=== PATIENT | female | born 1965 | race American Indian/Alaskan Native ===

== ENCOUNTER 2018-12-11 21:50 | Emergency (ER) | payer OTHER ==
--- NOTE | 2018-12-11 21:57 | Emergency Department Report ---
Blank Doc - Documentation Documentation: This is a 53-year-old female that presents with sickle cell flareup. This initial assessment/diagnostic orders/clinical plan/treatment(s) is/are subject to change based on patient's health status, clinical progression and re- assessment by fellow clinical providers in the ED. Further treatment and workup at subsequent clinical providers discretion. Patient/guardians urged not to elope from the ED as their condition may be serious if not clinically assessed and managed. Initial orders include: 1- Patient sent to MAIN ED for further evaluation and treatment 2- labs 3- UA
[2018-12-11 23:29] LABS: Basophils % (Auto) 0.3 % (0.0-1.8); Eosinophils % (Auto) 0.1 % (0.0-4.3); Hematocrit 37.4 % (30.3-42.9); Hemoglobin 12.5 gm/dl (10.1-14.3); Lymphocytes # (Auto) 1.1 K/mm3 (1.2-5.4); Mean Corpuscular HGB Conc 33 % (30-34); Mean Corpuscular Volume 73 fl (79-97); Monocytes # (Auto) 0.3 K/mm3 (0.0-0.8); Monocytes % (Auto) 3.2 % (0.0-7.3); Platelet Count 166 K/mm3 (140-440); Red Blood Count 5.11 M/mm3 (3.65-5.03); Red Cell Distribution Width 17.6 % (13.2-15.2)
[2018-12-11 23:49] LABS: BUN/Creatinine Ratio 13; Blood Urea Nitrogen 10 mg/dL (7-17); Calcium 9.5 mg/dL (8.4-10.2); Hemolysis Index 17
--- NOTE | 2018-12-12 00:46 | Emergency Department Report ---
ED General Adult HPI - General Chief complaint: Sickle Cell Crisis Stated complaint: LEFT LEG PAIN Time Seen by Provider: 12/11/18 21:56 Source: patient Mode of arrival: Ambulatory Limitations: No Limitations - History of Present Illness Initial comments: This is a 53-year-old female. This patient is not known to this provider previously. 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 She also reports a history of DVT and lower extremity, reported stent and left lower extremity, and reports being on permanent anticoagulation, rafael She is visiting from [place]. She presents to the ER with complaint of nontraumatic left medial thigh pain, stating "my sickle cell disease is bothering me." Patient indicates that her sickle cell disease flares up every couple months, and she cannot pinpoint exactly triggering factors at this time. She denies fever, sore throat, neck pain, chest pain, abdominal pain, urinary symptoms or shortness of breath. She denies sick contacts. -: Gradual Location: left, lower extremity Radiation: non-radiation Quality: aching Consistency: intermittent Improves with: rest Worsens with: movement Associated Symptoms: denies other symptoms - Related Data Previous Rx's Medication Instructions Recorded Last Taken Type Acetaminophen [Non-Aspirin Extra 500 mg PO Q6HR PRN #30 tablet 12/12/18 Unknown Rx Strength] Allergies Allergy/AdvReac Type Severity Reaction Status Date / Time No Known Allergies Allergy Unverified 08/02/15 06:18 ED Review of Systems ROS: Stated complaint: LEFT LEG PAIN Other details as noted in HPI Comment: All other systems reviewed and negative Musculoskeletal: myalgia ED Past Medical Hx - Past Medical History Previous Medical History?: Yes Hx Deep Vein Thrombosis: Yes 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" - Surgical History Past Surgical History?: Yes Additional Surgical History: tubal ligation, stent to L leg, UFE, - Social History Smoking Status: Never Smoker Substance Use Type: None - Medications Home Medications: Home Medications Medication Instructions Recorded Confirmed Last Taken Type Acetaminophen [Non-Aspirin Extra 500 mg PO Q6HR PRN #30 tablet 12/12/18 Unknown Rx Strength] ED Physical Exam - General Limitations: No Limitations, Other (chaperoned by ER hand picker Ambrosio Cantrell) General appearance: alert, in no apparent distress - Head Head exam: Present: atraumatic, normocephalic - Eye Eye exam: Present: normal appearance, EOMI. Absent: nystagmus - ENT ENT exam: Present: normal exam, normal orophraynx, mucous membranes moist, normal external ear exam - Neck Neck exam: Present: normal inspection, full ROM. Absent: tenderness, meningismus - Respiratory Respiratory exam: Present: normal lung sounds bilaterally. Absent: respiratory distress - Cardiovascular Cardiovascular Exam: Present: regular rate, normal rhythm, normal heart sounds. Absent: bradycardia, tachycardia, irregular rhythm, systolic murmur, diastolic murmur, rubs, gallop - GI/Abdominal GI/Abdominal exam: Present: soft, normal bowel sounds. Absent: distended, tenderness, guarding, rebound, rigid, pulsatile mass - Extremities Exam Extremities exam: Present: normal inspection (2+ pulses noted in the bilateral femoral region. There is no medial thigh tenderness. Chaperoned by ER hand picker Ambrosio Cantrell), full ROM, other (2+ pulses noted in the bilateral upper, lower extremities. Compartments soft. No long bony tenderness. The pelvis is stable.). Absent: pedal edema, joint swelling, calf tenderness - Back Exam Back exam: Present: normal inspection, full ROM. Absent: tenderness, CVA tenderness (R), CVA tenderness (L), paraspinal tenderness, vertebral tenderness - Neurological Exam Neurological exam: Present: alert, oriented X3, other (Extraocular movements intact. Tongue midline. No facial droop. Facial sensation intact to light touch in the V1, V2, V3 distribution bilaterally. 5 and 5 strength in 4 extremities.. Sensation is intact to light touch in 4 extremities.). Absent: motor sensory deficit - Psychiatric Psychiatric exam: Present: normal affect, normal mood - Skin Skin exam: Present: warm, dry, intact, normal color. 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 Total Prescriptions 3 Total Private Pay 0 Total Prescribers 3 Total Pharmacies 2 Opioids* (excluding buprenorphine) Current Qty 0.0 Current MME/day 0.0 30 Day Avg MME/day 0.0 Buprenorphine* Current Qty 0.0 Current mg/day 0.0 30 Day Avg mg/day 0.0 Prescriptions Filled ID Written Drug QTY Days Prescriber Rx # Pharmacy * Refills Daily Dose Pymt Type DRIER TENDER NAPHTHALENE 07/26/2018 1 07/26/2018 TRAMADOL HCL 50 MG TABLET 50.0 13 AD [facility] [id number] [facility] ([id number][facility] [place] 04/28/2018 1 04/23/2018 TRAMADOL HCL 50 MG TABLET 20.0 5 [place] [facility] [id number] [facility] ([id number]) [facility] [place] 03/18/2018 1 03/18/2018 TRAMADOL HCL 50 MG TABLET 15.0 2 [facility] [[email or web address] [id number] [facility] ([id number]) [facility] [place] *Pharmacy is created using a combination of pharmacy name and the last four d igits of the pharmacy license number. *Per CDC guidance, the MME conversion factors prescribed or provided as part of medication-assisted treatment for opioid use disorder should not be used to benchmark against dosage thresholds meant for opioids prescribed for pain. Buprenorphine products have no agreed upon morphine equivalency, and as partial opioid agonists, are not expected to be associated with overdose risk in the same dose-dependent manner as doses for full agonist opioids. MME = morphine milligram equivalents. mg = dose in milligrams. Prescribers Name Address [facility] Zip Phone SHIRA TRAMMELL MD [address] [facility] [id number] NIKHIL HUBBARD [address] [place] [address] MAKAYLA EDMOND JR. [address] [place] [address] ED Medical Decision Making - Lab Data Result diagrams: 12/11/18 23:10 12/11/18 23:10 Vital Signs 12/11/18 22:07 Temperature 98.5 F Pulse Rate 77 Respiratory 18 Rate Blood Pressure 132/85 O2 Sat by Pulse 98 Oximetry Lab Results 12/11/18 12/11/18 Range/Units 23:10 23:10 WBC 8.9 (4.5-11.0) K/mm3 RBC 5.11 H (3.65-5.03) M/mm3 Hgb 12.5 (10.1-14.3) gm/dl Hct 37.4 (30.3-42.9) % MCV 73 L (79-97) fl MCH 24 L (28-32) pg MCHC 33 (30-34) % RDW 17.6 H (13.2-15.2) % Plt Count 166 (140-440) K/mm3 Lymph % (Auto) 12.0 L (13.4-35.0) % [place] % (Auto) 3.2 (0.0-7.3) % Eos % (Auto) 0.1 (0.0-4.3) % Baso % (Auto) 0.3 (0.0-1.8) % Lymph # 1.1 L (1.2-5.4) K/mm3 [place] # 0.3 (0.0-0.8) K/mm3 Eos # 0.0 (0.0-0.4) K/mm3 Baso # 0.0 (0.0-0.1) K/mm3 Seg Neutrophils % 84.4 H (40.0-70.0) % Seg Neutrophils # 7.5 (1.8-7.7) K/mm3 Percent Retic 2.59 H (0.78-2.58) % Sodium 134 L (137-145) mmol/L Potassium 4.2 (3.6-5.0) mmol/L Chloride 95.1 L (98-107) mmol/L Carbon Dioxide 26 (22-30) mmol/L Anion Gap 17 mmol/L BUN 10 (7-17) mg/dL Creatinine 0.8 (0.7-1.2) mg/dL Estimated GFR > 60 ml/min BUN/Creatinine Ratio 13 % Glucose 118 H (65-100) mg/dL Calcium 9.5 (8.4-10.2) mg/dL - Medical Decision Making Differential diagnosis, including not limited to: Sprain, strain, sickle cell pa in, left medial thigh pain Assessment and plan: 53-year-old female who endorses nontraumatic left medial thigh pain and reported history of sickle cell C disease. The patient is afebrile with reassuring vital signs. She is not in any acute distress, and noted to be playing on a cellular phone during her history and physical. She has equal pulses in the upper, lower extremities bilaterally, soft muscular compartments, is afebrile, and is neurovascularly intact. Screening laboratory studies unremarkable, hemoglobin, hematocrit unremarkable, reticulocyte count, unremarkable The patient does not appear to have an acute medical emergency at this time. The patient can follow up with her outpatient physician in [place]. We'll treat her with ibuprofen and Percocet. Patient may be discharged with acetaminophen as needed for pain. Based off of the history and physical, do not see an indication to be discharged with outpatient narcotic therapy. Given history of eliquis use, permanently, not a candidate for NSAID therapy. Critical care attestation.: If time is entered above; I have spent that time in minutes in the direct care of this critically ill patient, excluding procedure time. ED Disposition Clinical Impression: Left leg pain Disposition: DC- TO HOME OR SELFCARE Is pt being admited?: No Does the pt Need Aspirin: No Condition: Good Additional Instructions: Rest, avoid heavy lifting, and avoid strenuous physical activities. Take the pain medicine as needed and directed. Continue current outpatient medications. Follow up with the primary care doctor or cribber within the next 2 weeks. Return to the emergency room right away with new, worsened or different symptoms not present on the initial emergency room evaluation. Referrals: LISA HENRIQUEZ DO [Staff Physician] - 3-5 Days [facility] [Provider Group] - 3-5 Days
[2018-12-12] MEDS ORDERED: IBUPROFEN PO ONE (01:51)
[2018-12-12] MEDS ORDERED: PERCOCET 5/325 PO ONE (01:51)
[2018-12-12 02:16] VITALS: BP 130/78
== END 2018-12-12 02:10 | disposition home or self-care (01) ==
LOC: ED 21:50
DX: M79.652 Pain in left thigh (principal); Z86.718 Personal history of other venous thrombosis and embolism; Z98.51 Tubal ligation status; Z79.899 Other long term (current) drug therapy
CPT/HCPCS: 36415; 80048; 85025; 85045; 99283